=== PATIENT | male | born 1950 | race Two or more races ===

== ENCOUNTER 2017-01-21 07:33 | Outpatient (CLI) | payer MEDICARE, BC ==
[2017-01-21 08:53] LABS: THYROID STIMULATING HORMONE 0.721 uIU/mL (0.358-3.74)
== END 2017-01-21 23:59 | disposition home or self-care (01) ==
LOC: NM 07:33
PROVIDERS: ATTEND Internal Medicine Interventional Cardiology
DX: I10 Essential (primary) hypertension (principal); R94.31 Abnormal electrocardiogram [ECG] [EKG]; R07.9 Chest pain, unspecified; R79.89 Other specified abnormal findings of blood chemistry
CPT/HCPCS: 36415; 78452; 80061; 83036; 84439; 84443; A9502

== ENCOUNTER 2019-07-18 07:53 | Day surgery (SDC) | payer MEDICARE, BC ==
[2019-07-18] MEDS ORDERED: IOHEXOL-350 100 ML VIAL IV ONE (08:05)
[2019-07-18] MEDS ORDERED: IV NS 0.9% 250 ML IV ONE (08:05)
[2019-07-18] MEDS ORDERED: METOPROLOL TARTRATE INJ 5 MG/5 ML AMPUL ONE (08:14)
[2019-07-18] MEDS ORDERED: NITROGLYCERIN 0.4 MG/TAB BOTTLE ONE (08:14)
[2019-07-18] MEDS ORDERED: IV NS 0.9% 500 ML IV ONE ×2 (08:15→08:30)
[2019-07-18] MEDS ORDERED: METOPROLOL TARTRATE INJ 5 MG/5 ML AMPUL IVP PRN (08:30)
[2019-07-18] MEDS ORDERED: NITROGLYCERIN 0.4 MG/TAB BOTTLE SL ONE (08:30)
[2019-07-18 09:04] LABS: BASOPHILS # (AUTO) 0.1 /CMM (0.0-0.2); BASOPHILS % (AUTO) 0.8 % (0.0-2.0); CALCIUM, SERUM 8.7 mg/dL (8.5-10.1); EOSINOPHILS % (AUTO) 5.3 % (0.0-6.0); HEMATOCRIT 44 % (39-51); HEMOGLOBIN 14.5 g/dL (13.5-17.5); LYMPHOCYTES # (AUTO) 1.7 /CMM (0.8-4.8); LYMPHOCYTES % (AUTO) 22.9 % (20.0-44.0); MEAN CORPUSCULAR HGB CONC 33 g/dl (31.0-36.0); MEAN CORPUSCULAR VOLUME 90 fL (80-96); MONOCYTES # (AUTO) 0.6 /CMM (0.1-1.30); MONOCYTES % (AUTO) 8.8 % (2.0-12.0); NEUTROPHILS # (AUTO) 4.5 /CMM (1.8-8.9); NEUTROPHILS % (AUTO) 62.2 % (43.0-81.0); PLATELET COUNT (AUTO) 257 /CMM (150-450); POTASSIUM 4.4 mmol/L (3.5-5.1); RED BLOOD CELL COUNT(AUTO) 4.87 MIL/uL (4.5-6.0); WHITE BLOOD COUNT (AUTO) 7.3 K/uL (4.3-11.0)
[2019-07-18 09:10] LABS: ALBUMIN 3.5 g/dL (3.4-5.0); BILIRUBIN,TOTAL 0.4 mg/dL (0.2-1.0); TOTAL PROTEIN, SERUM 6.9 g/dL (6.4-8.2)
[2019-07-18 09:21] LABS: FREE T4 (FREE THYROXINE) 0.89 ng/dL (0.76-1.46); THYROID STIMULATING HORMONE 0.641 uIU/mL (0.358-3.74)
[2019-07-18 09:28] VITALS: BP 120/76
--- NOTE | 2019-07-18 09:38 | NUR ---
ct angio done..pt tolerated well..transferred to recovery report to [facility]
--- NOTE | 2019-07-18 10:05 | NUR ---
RN NOTES RECEIVED REPORT FROM OUTPATIENT RN ASH PATIENT HAVE CTA AND NEED MONITORING IN 30 MINUTES . PATIENT UP TO THE UNIT TO MONITORING AFTER CTA. PATIENT A/O X4, REFUSED PAIN,A/O X4, V/S TAKEN BP-141/79, P-55, R-18, O2-100 RA, T-98.1. PATIENT STABLE, IV ACCESS ON RIGHT AC AREA INTACT, AMBULATORY SELF CARE.
--- NOTE | 2019-07-18 10:30 | NUR ---
RN NOTES PATIENT STABLEAT THIS TIME, V/S TAKEN BP 120/70, P-57, O2-100 RA, R-18.REMOVED IV ACCESS, SEEN PATIENT BY EVENT TECHNICIAN Dr GARCIA. PATIENT STABLE TO DISCHARGE HOME. PATIENT WALK OUT OF UNITS STABLE. WILL FOLLOW EVENT TECHNICIAN IN 2/3 DAYS.
== END 2019-07-18 10:30 | disposition home or self-care (01) ==
LOC: CT 07:53
PROVIDERS: ATTEND Internal Medicine Interventional Cardiology
DX: I25.10 Atherosclerotic heart disease of native coronary artery without angina pectoris (principal); E78.5 Hyperlipidemia, unspecified; E03.9 Hypothyroidism, unspecified; M47.814 Spondylosis without myelopathy or radiculopathy, thoracic region
CPT/HCPCS: 36415; 75574; 80053; 80061; 84439; 84443; 85025; J3490; J7040; J7050; Q9967

== ENCOUNTER 2019-09-13 09:55 | Outpatient (CLI) | payer MEDICARE, BC | END 2019-09-13 23:59 | disposition home or self-care (01) | LOC: RAD 09:55 | PROVIDERS: ATTEND Internal Medicine Interventional Cardiology | DX: I50.9 Heart failure, unspecified (principal); I70.0 Atherosclerosis of aorta; J90 Pleural effusion, not elsewhere classified; J98.11 Atelectasis | CPT/HCPCS: 71046 ==

== ENCOUNTER 2019-11-29 08:39 | Outpatient (CLI) | payer MEDICARE, BC | END 2019-11-29 23:59 | disposition home or self-care (01) | LOC: RAD 08:39 | PROVIDERS: ATTEND Internal Medicine Interventional Cardiology | DX: I25.10 Atherosclerotic heart disease of native coronary artery without angina pectoris (principal); Z95.1 Presence of aortocoronary bypass graft | CPT/HCPCS: 71250-TC ==